=== PATIENT | male | born 1985 | race Two or more races ===

== ENCOUNTER 2017-12-07 01:05 | Emergency (ER) | payer BC, OTHER ==
[~2017-12-07] VITALS: Ht 182.9 cm; Wt 83.9 kg
[2017-12-07 01:29] VITALS: BP 147/100
[2017-12-07] MEDS ORDERED: ONDANSETRON 4 MG TAB.RAPDIS SL ONE (02:00)
[2017-12-07] MEDS ORDERED: HYDROCODONE/APAP 10/325MG 1 EA TABLET PO ONE (02:00)
[2017-12-07] MEDS ORDERED: ONDANSETRON 4 MG TAB.RAPDIS ONE (02:10)
[2017-12-07] MEDS ORDERED: HYDROCODONE/APAP 10/325MG 1 EA TABLET ONE (02:10)
== END 2017-12-07 02:17 | disposition home or self-care (01) ==
LOC: ER 01:08
DX: K02.9 Dental caries, unspecified (principal); R11.2 Nausea with vomiting, unspecified
CPT/HCPCS: 99283; A4606; Q0162; Z7610

== ENCOUNTER 2018-11-01 21:27 | Emergency (ER) | payer MEDICAID, OTHER ==
--- NOTE | 2018-11-01 21:39 | NUR ---
CALLED PT TO BE TRIAGED 3X, NO ANSWER
--- NOTE | 2018-11-01 22:05 | NUR ---
CALLED PT TO BE TRIAGED, NO ANSWER
--- NOTE | 2018-11-01 22:30 | NUR ---
CALLED PT TO BE TRIAGED, NO ANSWER
== END 2018-11-01 22:31 | disposition home or self-care (01) ==
LOC: ER 21:28
DX: Z53.21 Procedure and treatment not carried out due to patient leaving prior to being seen by health care provider (principal)